=== PATIENT | male | born 1955 | race Caucasian/White ===

== ENCOUNTER 2024-10-23 10:42 | Emergency (ER) | payer BC, SELFPAY ==
[2024-10-23] MEDS: NSS 500 IV (11:50)
--- NOTE | 2024-10-23 11:52 | ED.GENMED ---
History of Present Illness
General
Chief Complaint: Musculo-Skeletal Complaint
Source: patient
Exam Limitations: none
Time Seen by Provider: 10/23/24 11:17
History of Present Illness
History of Present Illness:
68-year-old male nontraumatic pain over the right hip as he describes it. Started while standing from the bathroom. Has a history of other joint issues osteoarthritis. Took 10 mg of prednisone at home. Denies abdominal pain back pain distal
numbness tingling or weakness.
Past History
Past History
ED Past Medical History: GERD, Hypercholesterolemia and Other (Prostatic hypertrophy)
ED Past Surgical History: Appendectomy, Orthopedic and Tonsilectomy
Social History
Tobacco: Non-smoker
Alcohol: None
Drug: None
Personal:
Living: with family
Employment: Retired
Family History
Family History: Negative Early CAD
Review of Systems
Review of Systems
All Other Systems: Not applicable
Respiratory: Reports no symptoms
Cardiac: Reports no symptoms
ABD/GI: Reports no symptoms
Phy Exam
Physical Exam
Physical Exam:
GENERAL: Alert and oriented in no apparent distress
EYE: Orbits normal.
NECK: Supple
CARDIAC: Regular rate and rhythm without any obvious murmurs.
LUNGS: Clear breath sounds,normal
ABDOMEN: Soft, without focal tenderness or distention.. Good distal pulses and color.
NEUROLOGICAL: Alert and oriented , grossly non-focal
SKIN: Warm and dry, no rash or lesion, no discoloration, skin intact.
MUSCULOSKELETAL: No edema,no deformity.Good color no calf swelling no cord no warmth or erythema. No pain with right hip rotation. Pain and mild tenderness appear more over the right iliac crest.
PSYCH: Normal and appropriate interaction.
Course
Orders/Labs/Results
Orders:
Orders
10/23/24 11:34
CT Abd/pelvis Angio W/wo Iv Urgent
Comment:
Reason For Exam: Mima-Danlos syndrome right flank pain
IV Insert/Care/Rem.- Treatment PRN
0.9% Sodium Chloride 500 ml [Nss] 500 ml IV BOLUS
10/23/24 11:35
Acetaminophen 1000MG/100Ml [Ofirmev] 1,000 mg in 100 ml IV ONCE
Acetaminophen IV Indication:: ED Narcotic Naive Pt-ONCE
10/23/24 11:44
Complete Blood Count/With Diff Urgent
Comprehensive Metabolic Panel Urgent
Lipase Urgent
Urinalysis Reflex To Culture Urgent
Date Specimen was Collected: 10/23/24
Time Specimen was Collected: 11:38
10/23/24 13:39
Ketorolac [Toradol] 15 mg IV NOW STA
Abnormal Lab Results
10/23/24
11:44
Absolute Monos (auto) 0.8 H 10^3/uL
(0.1-0.6)
Monocytes % 10.3 H %
(1.7-9.3)
Glucose 112 H mg/dl
(70-99)
10/23/24 11:44
10/23/24 11:44
Vital Signs
Initial and Last Documented VS:
Initial Vital Signs
Pulse Resp BP Pulse Ox
80 18 113/71 97
10/23/24 13:07 10/23/24 13:07 10/23/24 13:07 10/23/24 13:07
Last Documented Vital Signs
Pulse Resp BP Pulse Ox
80 18 113/71 97
10/23/24 13:07 10/23/24 13:07 10/23/24 13:07 10/23/24 13:07
MDM/Problems Addressed
Differential Diagnosis Includes:
Symptoms are likely musculoskeletal. Nothing to support an acute vascular issue. Good distal pulses and color. No cord no warmth no erythema or swelling of the leg. Symptoms are located really over the right iliac crest. No pain with hip
rotation. I do not feel this is a primary hip issue. However with patient's Mima-Danlos syndrome and feel vascular issue should be ruled out.
*Radiology
Radiology exam reviewed: radiology read reviewed (No acute findings on CT)
*Pulse Oximetry
Patient hypoxic: no
*Critical Care Note
Total Time (30-74mins, 75-104mins- exclusive of procedures): Not Applicable
Data Reviewed
Review of Other/Old Records Reveals: Labs, Records and Testing
Update Note
Update Note:
Patient appears much better and feels better after IV Tylenol. No acute findings on CT. No vascular disease. Consistent with musculoskeletal issue related to the iliac crest. Clinically no hip issue. No infectious issue. Discharged to follow-up
ED Attending Note
-
Portions of this chart may have been created with voice recognition software.� Occasional wrong word or��sound alike� substitutions may have occurred due to the inherent limitations of voice recognition software.
Discharge Plan
Departure
Patient Disposition: Home (Routine Discharge)
Date of Disposition: 10/23/24
Time of Disposition: 14:03
Patient with high blood pressure during this ER visit?: No
Discharge Problem:
Right iliac crest pain, History of Mima-Danlos syndrome
Instructions: Muscle and Bone Pain (DC)
Prescriptions:
New
hydrocodone-acetaminophen 5-300 mg tablet
1 tab PO Q6H PRN (Reason: Pain) Qty: 10 0RF
No Action
Alfuzosin HCl ER
40 mg PO HS
Antacid
5 ml PO PRN PRN (Reason: GERD symptoms)
celecoxib 200 MG capsule
200 mg PO HS
ascorbic acid (vitamin C) [Vitamin C] 2,000 MG tablet extended release
2,000 mg PO BID
liothyronine 25 MICROGRAM tablet
25 mcg PO DAILY
famotidine 40 MG tablet
40 mg PO HS
tyrosine 500 MG capsule
500 mg PO DAILY
selenium [Se-100] 100 MCG capsule
100 mcg PO DAILY
levothyroxine 88 MCG tablet
88 mcg PO DAILY
zinc gluconate 30 MG tablet
30 mg PO HS
omeprazole 20 MG capsule,delayed release(DR/EC)
20 mg PO DAILY
[id number] [Calcium Citrate Plus (Vit B6)] 1 EACH tablet
1 ea PO DAILY
boron citrate [boron] 3 MG tablet
3 mg PO DAILY
vitamin E (dl, acetate) 100 UNITS capsule
200 units PO DAILY
cholecalciferol (vitamin D3) 1,000 UNITS tablet
1,000 units PO BID
vitamins [id number] [B-Complex With B-12] 1 EACH tablet
1 ea PO DAILY
Bioflavonoids
1 tab PO DAILY
Gentamicin Nasal [place]
1 oz intranasal DAILY
Lorazepam
0.0125 mg PO HS
Lutein
10 mg PO HS
Tianeptine (Stablon)
12.5 mg PO BID
Vegan [place] 3
1 tab PO DAILY
Vitamin A (Retinyl Palmitate & 50% Beta Carotene)
9,575 mg PO DAILY
Wellbutrin SR, 12 HR
200 mg PO BID
potassium [Potassium-99] 99 MG tablet
99 mg PO BID
glucosamine sulfate 2KCl-MSM 1 CAP capsule
500 mg PO BID
B[place]wellia Extract
66 mg PO BID
Cetyl Myristoleate Cvomplex
66 mg PO BID
Glucosamine (Vegetarian)
1,000 mg PO BID
L-Theanine
200 mg PO DAILY
Lipase
2.34 mg PO BID
ofloxacin [Ocuflox] 10 ML drops
1 - 2 ml OP Q4 Qty: 1 0RF
tramadol [Ultram] 50 MG tablet
50 mg PO Q6HPRN PRN (Reason: pain) Qty: 20 0RF
penicillin V potassium 500 MG tablet
500 mg PO QID Qty: 40 0RF
clindamycin HCl 300 MG capsule
300 mg PO TID Qty: 30 0RF
diazepam 2 MG tablet
2 - 4 mg PO BID Qty: 12 0RF
Rx Instructions:
severe muscle pain
Referrals:
Chery Morse, [Family Provider] - Follow up in 2-3 days
Activity Restrictions/Additional Instructions:
Advil or Motrin for pain
You can add Tylenol or substitute Vicodin for the Tylenol if needed
Close follow-up with your primary physician
Return with increasing pain abdominal pain numbness tingling weakness of the leg or any other concerning symptom
Interventions
Interventions:
*Risk Screen - Suicide Last Done: 10/23/24 12:56
*General Assessment Last Done: 10/23/24 12:56
*Neglect/Abuse Screening Last Done: 10/23/24 12:56
*Nursing Disposition Last Done: 10/23/24 15:00
ED-Musculoskeletal Assessment Last Done: 10/23/24 12:56
Discharge Date and Time
Discharge Date/Time: 10/23/24 15:01
Print Language: PORTUGUESE
[2024-10-23] MEDS: OFIRMEV 100 IV (11:54)
[2024-10-23 12:06] LABS: % Basophils 1.1 % (0-2); % Eosinophils 5.6 % (0-6); % Immature Granulocytes 0.4 % (0-0.5); % Lymphocytes 22.1 % (20.5-51.1); % Monocytes 10.3 % (1.7-9.3); % Neutrophils 60.5 % (42.2-75.2); Absolute Basophils 0.1 10^3/uL (0-0.2); Absolute Eosinophils 0.4 10^3/uL (0-0.7); Absolute Lymphocytes 1.7 10^3/uL (1.2-3.4); Absolute Monocytes 0.8 10^3/uL (0.1-0.6); Absolute Neutrophils 4.8 10^3/uL (1.4-6.5); Hematocrit 45.1 % (39.0-52.0); Hemoglobin 16.1 g/dL (13.0-18.0); Mean Corp Hgb Conc. 35.7 g/dL (33.0-37.0); Mean Corpuscular Hgb 30.8 pg (27.0-31.0); Mean Corpuscular Volume 86.4 fL (80.0-94.0); Mean Platelet Volume 9.5 fL (7.4-10.4); Nucleated Red Blood Cells % 0 % (-); Platelet Count 239 10^3/uL (130-400); Red Blood Cell Count 5.22 10^6/uL (4.70-6.10); Red Cell Dist. Width 13.4 % (11.5-14.5); White Blood Cell Count 7.9 10^3/uL (4.8-10.8)
[2024-10-23 12:18] LABS: ALT (SGPT) 26 U/L (0-50); AST (SGOT) 32 U/L (17-59); Alkaline Phosphatase 78 U/L (38-126); Blood Urea Nitrogen 13 mg/dl (9-20); Calcium 9.4 mg/dl (8.4-10.2); Carbon Dioxide 27 mmol/L (22-30); Chloride 103 mmol/L (98-107); Glucose 112 mg/dl (70-99); Lipase 83 U/L (23-300); Potassium 4.1 mmol/L (3.5-5.1); Sodium 138 mmol/L (135-145); Total Bilirubin 0.6 mg/dl (0.2-1.3); Total Protein 6.4 g/dl (6.3-8.2); eGFR > 60.00
[2024-10-23 12:52] LABS: Urine Albumin Negative (Neg - Trace); Urine Bilirubin Negative (Negative); Urine Character Clear (Clear); Urine Color Yellow; Urine Glucose Negative (Negative); Urine Ketone Negative (Negative); Urine Leukocyte Negative (Negative); Urine Nitrite Negative (Negative); Urine Occult Blood Negative (Negative); Urine Specific Gravity 1.005 (<1.030); Urine Urobilinogen Negative (Neg - 1+)
[2024-10-23 13:07] VITALS: BP 113/71
[2024-10-23] MEDS: TORADOL 15 MG IV (14:00)
== END 2024-10-23 15:01 | disposition home or self-care (01) ==
LOC: EMR 10:42
PROVIDERS: EMERGENCY PHYSICIAN Emergency Medicine; FAMILY PHYSICIAN Family Medicine
DX: M25.551 Pain in right hip (principal); Q79.60 Ehlers-Danlos syndrome, unspecified; E78.00 Pure hypercholesterolemia, unspecified; N40.0 Benign prostatic hyperplasia without lower urinary tract symptoms
CPT/HCPCS: 96374; 96375; 96361; 99284; 74174; 80053; 81003; 83690; 85025; Q9967